=== PATIENT | female | born 1935 | race Caucasian/White ===

== ENCOUNTER 2021-08-23 08:48 | Day surgery (SDC) | payer MEDICARE, BC ==
[~2021-08-23] VITALS: Ht 160 cm; Wt 60.9 kg
[2021-08-23 09:00] VITALS: BP 124/64
[2021-08-23] MEDS ORDERED: MIDAZolam 1 MG/ML 5ML VIAL ONE (09:00)
[2021-08-23] MEDS ORDERED: fentaNYL/PF 50MCG/1 ML 2ML syringe ONE (09:00)
[2021-08-23] MEDS ORDERED: LIDOcaine Viscous 15ml cup ONE (09:01)
[2021-08-23] MEDS ORDERED: TRAZ-251 PO (09:11)
[2021-08-23] MEDS ORDERED: PANT-47 PO (09:11)
[2021-08-23] MEDS ORDERED: RAME8TAB15 PO (09:11)
[2021-08-23] MEDS ORDERED: CITA20TA27 PO (09:11)
[2021-08-23] MEDS ORDERED: BUSP5TAB3 PO (09:11)
[2021-08-23 09:59] VITALS: BP 180/75
[2021-08-23 10:09] VITALS: BP 142/65
[2021-08-23 10:19] VITALS: BP 128/60
[2021-08-23 10:29] VITALS: BP 138/60
== END 2021-08-23 10:41 | disposition home or self-care (01) ==
LOC: GI LAB 08:48
PROVIDERS: ATTEND Internal Medicine Gastroenterology
DX: R13.10 Dysphagia, unspecified (principal); K22.2 Esophageal obstruction; K44.9 Diaphragmatic hernia without obstruction or gangrene; K29.50 Unspecified chronic gastritis without bleeding; K20.80 Other esophagitis without bleeding; Z90.710 Acquired absence of both cervix and uterus
CPT/HCPCS: 43239; G0500; J2250; J3010; Z7512; 88305; 88342; 99152; A4620

== ENCOUNTER 2022-03-02 14:10 | Emergency (ER) | payer MEDICARE, BC ==
[~2022-03-02] VITALS: Ht 160 cm; Wt 61.8 kg
[~2022-03-02 14:10] MED LIST: BUSP5TAB3 PO; CITA20TA27 PO; PANT-47 PO; RAME8TAB15 PO; TRAZ-251 PO
[2022-03-02 14:48] VITALS: BP 144/47
[2022-03-02 15:28] LABS: BASOPHILS # (AUTO) 0.1 X10'3 (0-0.2); EOSINOPHILS # (AUTO) 0.1 X10'3 (0-0.9); EOSINOPHILS % (AUTO) 1.5 % (0-6); HEMATOCRIT 36.5 % (35.0-45.0); HEMOGLOBIN 12.1 g/dl (12.0-16.0); LYMPHOCYTES # (AUTO) 1.4 X10'3 (1.1-4.8); LYMPHOCYTES % (AUTO) 18.8 % (21-51); MEAN CORPUSCULAR HGB CONC 33.3 g/dL (33.0-36.5); MEAN CORPUSCULAR VOLUME 87.1 FL (78-98); MONOCYTES # (AUTO) 0.7 X10'3 (0-0.9); MONOCYTES % (AUTO) 8.7 % (2-12); NEUTROPHILS # (AUTO) 5.3 X10'3 (1.8-7.7); PLATELET COUNT 259 X10'3 (140-440); RED BLOOD COUNT 4.19 X10'6 (4.20-5.60); RED CELL DISTRIBUTION WIDTH 14.9 % (11.5-14.5); WHITE BLOOD COUNT 7.5 X10'3 (4.5-11.0)
[2022-03-02 15:42] LABS: ALANINE AMINOTRANSFERASE 17 U/L (12-78); ALBUMIN 3.6 G/DL (3.4-5.0); ALKALINE PHOSPHATASE 111 IU/L (46-116); ANION GAP 4 (8-16); ASPARTATE AMINO TRANSFERASE 18 U/L (10-37); BILIRUBIN,TOTAL 0.3 MG/DL (0.1-1.0); BLOOD UREA NITROGEN 11 MG/DL (7-18); BUN/CREATININE RATIO 13.6 (6.6-38.0); CALCIUM 8.4 MG/DL (8.5-10.1); CHLORIDE 102 MMOL/L (99-107); CREATININE 0.81 MG/DL (0.40-0.90); GLUCOSE 115 MG/DL (70-104); POTASSIUM 3.9 MMOL/L (3.5-5.1); SODIUM 132 MMOL/L (135-145); TOTAL CARBON DIOXIDE 25.9 MMOL/L (24-32); TOTAL PROTEIN 7.2 G/DL (6.4-8.2); eGFR 67 ML/MIN
== END 2022-03-03 01:41 | disposition left against medical advice (07) ==
LOC: ER 14:10
DX: R42 Dizziness and giddiness (principal); Z53.21 Procedure and treatment not carried out due to patient leaving prior to being seen by health care provider
CPT/HCPCS: 36415; 71045; 80053; 83880; 84484; 85025

== ENCOUNTER 2022-07-02 16:12 | Emergency (ER) | payer MEDICARE, BC ==
[~2022-07-02] VITALS: Ht 160 cm; Wt 61.0 kg
[2022-07-02 16:41] VITALS: BP 194/68
[2022-07-02] MEDS ORDERED: normal saline 1000ML IV soln IVB ONE (16:50)
[2022-07-02 17:41] LABS: BASOPHILS % (AUTO) 0.5 % (0-1); EOSINOPHILS # (AUTO) 0.1 X10'3 (0-0.9); EOSINOPHILS % (AUTO) 1.7 % (0-6); HEMATOCRIT 33.3 % (35.0-45.0); HEMOGLOBIN 11.1 g/dl (12.0-16.0); LYMPHOCYTES # (AUTO) 1.6 X10'3 (1.1-4.8); LYMPHOCYTES % (AUTO) 29.1 % (21-51); MEAN CORPUSCULAR HEMOGLOBIN 29.4 PG (27.0-31.0); MEAN CORPUSCULAR HGB CONC 33.4 g/dL (33.0-36.5); MEAN CORPUSCULAR VOLUME 88.1 FL (78-98); MONOCYTES # (AUTO) 0.7 X10'3 (0-0.9); MONOCYTES % (AUTO) 12.6 % (2-12); NEUTROPHILS % (AUTO) 56.1 % (42-75); PLATELET COUNT 232 X10'3 (140-440); RED BLOOD COUNT 3.78 X10'6 (4.20-5.60); RED CELL DISTRIBUTION WIDTH 14.7 % (11.5-14.5); WHITE BLOOD COUNT 5.4 X10'3 (4.5-11.0)
[2022-07-02 17:45] LABS: ALANINE AMINOTRANSFERASE 21 U/L (12-78); ALBUMIN/GLOBULIN RATIO 0.9 (1.1-1.5); ALKALINE PHOSPHATASE 100 IU/L (46-116); ANION GAP 6 (8-16); ASPARTATE AMINO TRANSFERASE 23 U/L (10-37); BILIRUBIN,TOTAL 0.2 MG/DL (0.1-1.0); BLOOD UREA NITROGEN 16 MG/DL (7-18); BUN/CREATININE RATIO 19.8 (6.6-38.0); CALCIUM 8.4 MG/DL (8.5-10.1); CHLORIDE 101 MMOL/L (99-107); CREATININE 0.81 MG/DL (0.40-0.90); GLUCOSE 100 MG/DL (70-104); POTASSIUM 4.4 MMOL/L (3.5-5.1); SODIUM 136 MMOL/L (135-145); TOTAL CARBON DIOXIDE 29.1 MMOL/L (24-32); TOTAL PROTEIN 6.5 G/DL (6.4-8.2); eGFR 67 ML/MIN
[2022-07-02] MEDS ORDERED: ERGO500054 PO (18:29)
--- NOTE | 2022-07-02 19:15 | NUR ---
Per primary nurse, pt son was here to give pt a ride home, but when PCT wheeled patient out of ER, son was not in parking lot. Number listed for son was called and message left.
== END 2022-07-02 19:42 | disposition home or self-care (01) ==
LOC: ER 16:12
DX: U07.1 COVID-19 (principal); R53.1 Weakness; R50.9 Fever, unspecified; R11.10 Vomiting, unspecified; F41.9 Anxiety disorder, unspecified; F32.A Depression, unspecified; Z79.899 Other long term (current) drug therapy
CPT/HCPCS: 36415; 71045; 80053; 84484; 85025; 87635; 93005; 99285; C9803; J7030

== ENCOUNTER 2023-01-16 11:12 | Emergency (ER) | payer MEDICARE, BC ==
[~2023-01-16] VITALS: Ht 157.5 cm; Wt 57.3 kg
[~2023-01-16 11:12] MED LIST changes: +ERGO500054 PO
[2023-01-16 12:05] LABS: BASOPHILS # (AUTO) 0.1 X10'3 (0-0.2); BASOPHILS % (AUTO) 0.7 % (0-1); EOSINOPHILS % (AUTO) 0.2 % (0-6); HEMATOCRIT 30.1 % (35.0-45.0); LYMPHOCYTES # (AUTO) 0.9 X10'3 (1.1-4.8); LYMPHOCYTES % (AUTO) 7.7 % (21-51); MEAN CORPUSCULAR HEMOGLOBIN 27.5 PG (27.0-31.0); MEAN CORPUSCULAR HGB CONC 33.3 g/dL (33.0-36.5); MEAN CORPUSCULAR VOLUME 82.6 FL (78-98); MEAN PLATELET VOLUME 7.4 FL (7.4-10.4); MONOCYTES # (AUTO) 0.5 X10'3 (0-0.9); MONOCYTES % (AUTO) 4.1 % (2-12); NEUTROPHILS # (AUTO) 10.5 X10'3 (1.8-7.7); NEUTROPHILS % (AUTO) 87.3 % (42-75); PLATELET COUNT 408 X10'3 (140-440); RED BLOOD COUNT 3.65 X10'6 (4.20-5.60); RED CELL DISTRIBUTION WIDTH 17.4 % (11.5-14.5); WHITE BLOOD COUNT 12.1 X10'3 (4.5-11.0)
[2023-01-16 12:16] LABS: ALANINE AMINOTRANSFERASE 11 U/L (12-78); ALBUMIN 3.3 G/DL (3.4-5.0); ALBUMIN/GLOBULIN RATIO 0.8 (1.1-1.5); ALKALINE PHOSPHATASE 115 IU/L (46-116); ANION GAP 8 (8-16); ASPARTATE AMINO TRANSFERASE 13 U/L (10-37); BILIRUBIN,TOTAL 0.4 MG/DL (0.1-1.0); BLOOD UREA NITROGEN 21 MG/DL (7-18); BUN/CREATININE RATIO 18.1 (10.0-20.0); CALCIUM 8.7 MG/DL (8.5-10.1); CHLORIDE 104 MMOL/L (99-107); CREATININE 1.16 MG/DL (0.40-0.90); GLUCOSE 112 MG/DL (70-104); POTASSIUM 4.4 MMOL/L (3.5-5.1); SODIUM 135 MMOL/L (135-145); TOTAL CARBON DIOXIDE 23.2 MMOL/L (24-32); TOTAL PROTEIN 7.2 G/DL (6.4-8.2); eGFR 44 ML/MIN
[2023-01-16 16:27] LABS: CLARITY,URINE SLIGHTLY CLOUDY (Clear); COLOR,URINE YELLOW (Yellow); GLUCOSE, URINE NEGATIVE (Neg); KETONES,URINE 15 mg/dl (Neg); LEUKOCYTE ESTERASE ,URINE NEGATIVE (Neg); NITRITES, URINE NEGATIVE (Neg); OCCULT BLOOD,URINE TRACE-INTACT (Neg); PROTEIN,URINE TRACE mg/dl (Neg); UROBILINOGEN,URINE 0.2 E.U/dL (0.2-1.0)
[2023-01-16 16:29] LABS: UA COLLECTION TYPE VOIDED
[2023-01-16 16:41] LABS: BACTERIA,URINE 2+ /HPF (Neg); RBC,URINE 0-2 /HPF (0-2); SQUAMOUS EPITHELIAL CELL,UR MANY /LPF (FEW)
[2023-01-16 16:42] LABS: MUCUS STRANDS FEW /LPF (Neg); TRANSITIONAL EPI CELLS,URINE FEW /HPF
--- NOTE | 2023-01-16 16:42 | NUR ---
cALL FROM LAB UA IS CONTAMINATED WILL NEED TO RECAP. RN NOTIFIED.
[2023-01-16] MEDS ORDERED: AMOX-117 PO (16:48)
[2023-01-16] MEDS: amox tr/potassium clavulanate 875/125mg TAB PO ONE (17:18)
[2023-01-16 20:20] VITALS: BP 118/42
== END 2023-01-16 17:25 | disposition home or self-care (01) ==
LOC: ER 11:12
DX: N39.0 Urinary tract infection, site not specified (principal); F31.9 Bipolar disorder, unspecified; Z79.899 Other long term (current) drug therapy; Z79.1 Long term (current) use of non-steroidal anti-inflammatories (NSAID); Z79.2 Long term (current) use of antibiotics
CPT/HCPCS: 36415; 71045; 80053; 81001; 83880; 84484; 85025; 93005; 99285

== ENCOUNTER 2023-06-02 08:27 | Inpatient (IN) | payer MEDICARE, BC ==
[~2023-06-02] VITALS: Ht 160 cm; Wt 59.1 kg
[2023-06-02 10:16] LABS: BASOPHILS # (AUTO) 0.1 X10'3 (0-0.2); EOSINOPHILS # (AUTO) 0.4 X10'3 (0-0.9); EOSINOPHILS % (AUTO) 4.3 % (0-6); HEMATOCRIT 32.7 % (35.0-45.0); HEMOGLOBIN 10.6 g/dl (12.0-16.0); LYMPHOCYTES # (AUTO) 1.3 X10'3 (1.1-4.8); LYMPHOCYTES % (AUTO) 14.3 % (21-51); MEAN CORPUSCULAR HEMOGLOBIN 27.3 PG (27.0-31.0); MEAN CORPUSCULAR HGB CONC 32.3 g/dL (33.0-36.5); MEAN CORPUSCULAR VOLUME 84.4 FL (78-98); MEAN PLATELET VOLUME 7.5 FL (7.4-10.4); MONOCYTES # (AUTO) 0.7 X10'3 (0-0.9); MONOCYTES % (AUTO) 7.8 % (2-12); NEUTROPHILS # (AUTO) 6.6 X10'3 (1.8-7.7); NEUTROPHILS % (AUTO) 72.6 % (42-75); PLATELET COUNT 399 X10'3 (140-440); RED BLOOD COUNT 3.88 X10'6 (4.20-5.60); RED CELL DISTRIBUTION WIDTH 15.9 % (11.5-14.5); WHITE BLOOD COUNT 9.1 X10'3 (4.5-11.0)
[2023-06-02 10:28] LABS: APTT 35 SECONDS (22-32); PROTHROMBIN TIME 10.7 SECONDS (9.0-12.0)
[2023-06-02 10:31] LABS: ALANINE AMINOTRANSFERASE 15 U/L (12-78); ALBUMIN/GLOBULIN RATIO 0.8 (1.1-1.5); ALKALINE PHOSPHATASE 114 IU/L (46-116); ANION GAP 9 (8-16); ASPARTATE AMINO TRANSFERASE 11 U/L (10-37); BILIRUBIN,TOTAL 0.4 MG/DL (0.1-1.0); BLOOD UREA NITROGEN 13 MG/DL (7-18); BUN/CREATININE RATIO 17.1 (10.0-20.0); CALCIUM 8.9 MG/DL (8.5-10.1); CHLORIDE 105 MMOL/L (99-107); CREATININE 0.76 MG/DL (0.40-0.90); GLUCOSE 105 MG/DL (70-104); POTASSIUM 3.8 MMOL/L (3.5-5.1); SODIUM 139 MMOL/L (135-145); TOTAL CARBON DIOXIDE 25.3 MMOL/L (24-32); TOTAL PROTEIN 6.9 G/DL (6.4-8.2); eCRCL 42 ML/MIN; eGFR 72 ML/MIN
[2023-06-02] MEDS ORDERED: acetaminophen 325mg tablet PO ONE (10:35)
[2023-06-02 11:13] LABS: BILIRUBIN,URINE NEGATIVE (Neg); CLARITY,URINE SLIGHTLY CLOUDY (Clear); COLOR,URINE YELLOW (Yellow); GLUCOSE, URINE NEGATIVE (Neg); KETONES,URINE 40 mg/dl (Neg); LEUKOCYTE ESTERASE ,URINE NEGATIVE (Neg); NITRITES, URINE NEGATIVE (Neg); OCCULT BLOOD,URINE TRACE-INTACT (Neg); PROTEIN,URINE 30 mg/dl (Neg); UROBILINOGEN,URINE 0.2 E.U/dL (0.2-1.0)
[2023-06-02 11:16] LABS: UA COLLECTION TYPE FOLEY CATH
[2023-06-02 11:18] LABS: BACTERIA,URINE FEW /HPF (Neg); MUCUS STRANDS NONE SEEN /LPF (Neg); RBC,URINE 0-2 /HPF (0-2); SQUAMOUS EPITHELIAL CELL,UR FEW /LPF (FEW); WBC,URINE 0-4 /HPF (0-4)
[2023-06-02] MEDS ORDERED: DICL50TA6 PO (13:04)
[2023-06-02] MEDS ORDERED: TOPI25TA49 PO (13:04)
[2023-06-02] MEDS ORDERED: SERT-432 PO (13:04)
[2023-06-02] MEDS ORDERED: ondansetron 4mg rapidly disintigrating tab PO PRN (13:10)
[2023-06-02] MEDS ORDERED: HYDROmorphone inj. 0.5 MG/0.5 ML DISP.SYRIN IV PRN (13:10)
[2023-06-02] MEDS ORDERED: magnesium 4gm in 100ml NS 100 ML IV PRN (13:10)
[2023-06-02] MEDS: normal saline 1000ml 1,000 ML IV SCH ×3 (13:10→23:02)
[2023-06-02] MEDS ORDERED: magnesium 2GM in 50ml NS 50 ML IV PRN (13:10)
[2023-06-02] MEDS ORDERED: bisacodyl 10mg suppository rectal RC PRN (13:10)
[2023-06-02] MEDS ORDERED: acetaminophen 650mg rectal suppository RC PRN (13:10)
[2023-06-02] MEDS ORDERED: potassium Cl 20 mEq SR tablet PO PRN ×2 (13:10)
[2023-06-02] MEDS ORDERED: HYDROmorphone/PF 0.2 MG/ML SYRINGE IV PRN (13:10)
[2023-06-02] MEDS ORDERED: magnesium Cl slow-release 64mg tablet PO PRN (13:10)
[2023-06-02] MEDS ORDERED: potassium Cl 40MEQ/1/2NS 520ml 520 ML IV PRN (13:10)
[2023-06-02] MEDS ORDERED: ondansetron/PF 4mg/2ml inj IV PRN (13:10)
[2023-06-02] MEDS ORDERED: acetaminophen 325mg tablet PO PRN ×2 (13:10)
[2023-06-02] MEDS ORDERED: LIDOcaine 2% 10ml TOPICAL JELLY (Urojet) TP ONE (13:10)
[2023-06-02] MEDS ORDERED: mag hydrox/Alum hydrox/simeth 30ml oral suspension PO PRN (13:10)
[2023-06-02] MEDS ORDERED: magnesium hydroxide 30ml (MOM) UD suspension PO PRN (13:10)
[2023-06-02 13:25] LABS: MAGNESIUM 2.2 MG/DL (1.5-2.4)
[2023-06-02] MEDS ORDERED: LidoCAINE 2% Topical Jelly 11mL syringe TOP ONE (13:30)
[2023-06-02] MEDS: HYDROcodone/acetaminophen 5mg/325mg tablet PO PRN (14:40)
--- NOTE | 2023-06-02 16:46 | NUR ---
Report given to nurse Yovana pt with room assignment 4915x
--- NOTE | 2023-06-02 16:48 | NUR ---
Received report from ALEKSANDRA Wu in the ED. Patient is stable for baseline, went over patients plan of care. To be transferred to :2540 B.
[2023-06-02 16:55] LABS: CREATINE KINASE 113 U/L (26-192)
[2023-06-02 17:53] VITALS: BP 141/57; PULSE 74; RESP 16; TEMP 97.3; O2SAT 92
--- NOTE | 2023-06-02 18:18 | NUR ---
Problems reprioritized. Patient report given, questions answered & plan of care reviewed with Oneida LAKE.
[2023-06-02 19:15] VITALS: BP 127/53; PULSE 73; RESP 16; TEMP 97.2; O2SAT 94
[2023-06-02] MEDS: K and/or MAG REPLACEMENT MC SCH (20:00)
[2023-06-02] MEDS ORDERED: heparin, porcine 5000 units/ml vial SQ SCH (20:00)
[2023-06-02] MEDS: busPIRone 5mg tablet PO SCH (20:08)
[2023-06-02] MEDS: docusate sod 100mg capsule PO SCH (20:08)
[2023-06-02] MEDS ORDERED: temazepam 15mg capsule PO PRN (21:00)
[2023-06-02 22:00] VITALS: BP 130/47; PULSE 75; RESP 16; TEMP 97.9; O2SAT 95
[2023-06-02] MEDS: traZODone 50mg tablet PO SCH (22:41)
[2023-06-03] VITALS (14 sets, daily range): BP systolic 98–158; BP diastolic 38–59; PULSE 16–85; RESP 16–18; TEMP 97.7–98.4; O2SAT 91–97
[2023-06-03] MEDS: HYDROcodone/acetaminophen 5mg/325mg tablet PO PRN ×3 (00:12→19:51)
--- NOTE | 2023-06-03 06:35 | NUR ---
Problems reprioritized. Patient report given, questions answered & plan of care reviewed with ALEKSANDRA HUMPHREY.
[2023-06-03 06:37] LABS: BASOPHILS # (AUTO) 0.1 X10'3 (0-0.2); BASOPHILS % (AUTO) 0.9 % (0-1); EOSINOPHILS # (AUTO) 0.7 X10'3 (0-0.9); EOSINOPHILS % (AUTO) 7.4 % (0-6); HEMOGLOBIN 9.4 g/dl (12.0-16.0); LYMPHOCYTES # (AUTO) 1.5 X10'3 (1.1-4.8); MEAN CORPUSCULAR HEMOGLOBIN 27.4 PG (27.0-31.0); MEAN CORPUSCULAR HGB CONC 32.5 g/dL (33.0-36.5); MEAN CORPUSCULAR VOLUME 84.3 FL (78-98); MEAN PLATELET VOLUME 7.3 FL (7.4-10.4); MONOCYTES # (AUTO) 0.9 X10'3 (0-0.9); MONOCYTES % (AUTO) 9.6 % (2-12); NEUTROPHILS # (AUTO) 6.1 X10'3 (1.8-7.7); NEUTROPHILS % (AUTO) 66.1 % (42-75); PLATELET COUNT 352 X10'3 (140-440); RED BLOOD COUNT 3.44 X10'6 (4.20-5.60); RED CELL DISTRIBUTION WIDTH 15.8 % (11.5-14.5); WHITE BLOOD COUNT 9.2 X10'3 (4.5-11.0)
[2023-06-03 06:57] LABS: ALANINE AMINOTRANSFERASE 15 U/L (12-78); ALBUMIN 2.5 G/DL (3.4-5.0); ALBUMIN/GLOBULIN RATIO 0.7 (1.1-1.5); ALKALINE PHOSPHATASE 99 IU/L (46-116); ANION GAP 6 (8-16); ASPARTATE AMINO TRANSFERASE 21 U/L (10-37); BILIRUBIN,TOTAL 0.3 MG/DL (0.1-1.0); BLOOD UREA NITROGEN 15 MG/DL (7-18); BUN/CREATININE RATIO 22.1 (10.0-20.0); CALCIUM 8.3 MG/DL (8.5-10.1); CHLORIDE 106 MMOL/L (99-107); CREATININE 0.68 MG/DL (0.40-0.90); GLUCOSE 92 MG/DL (70-104); MAGNESIUM 2.1 MG/DL (1.5-2.4); POTASSIUM 3.7 MMOL/L (3.5-5.1); SODIUM 139 MMOL/L (135-145); TOTAL CARBON DIOXIDE 26.8 MMOL/L (24-32); eCRCL 47 ML/MIN; eGFR 82 ML/MIN
[2023-06-03] MEDS ORDERED: BUPIVAcaine/PF 2.5 mg/ml (0.25%) 30ml vial ONE (07:14)
--- NOTE | 2023-06-03 07:46 | NUR ---
pt taken for surgery
[2023-06-03] MEDS ORDERED: fentaNYL/PF 50MCG/1 ML 2ML syringe ONE (07:54)
[2023-06-03] MEDS ORDERED: midazolam 1 mg/ML 2ml injection ONE (07:54)
[2023-06-03] MEDS: pantoprazole 40mg Tablet.DR PO SCH (08:00)
[2023-06-03] MEDS: K and/or MAG REPLACEMENT MC SCH ×2 (08:00→18:50)
[2023-06-03] MEDS: docusate sod 100mg capsule PO SCH ×2 (08:00→19:51)
[2023-06-03] MEDS ORDERED: ketamine 50mg/5ml syringe ONE (08:18)
[2023-06-03] MEDS ORDERED: BUPIVAcaine/PF 2.5 mg/ml (0.25%) 30ml vial IJ ONE (08:30)
[2023-06-03] MEDS ORDERED: ceFAZolin 1000mg inj ONE (08:44)
[2023-06-03] MEDS ORDERED: phenylephrine 10mg/ml inj. -priapism dosing ONE (08:44)
[2023-06-03] MEDS ORDERED: non-formulary drug (Diclofenac Potassium 1 TAB) PO PRN (08:50)
--- NOTE | 2023-06-03 08:50 | NUR ---
Received from OR via , accompanied by Anesthesiologist DR GARVIN and report given by Anesthesiolgist. PT AWAKE ALERT, SKIN WARM AND PINK, DERMATOME LEVEL L1, MOVES BILAT UE'S, PIV LEFT AC 20G, RIGHT HIP WITH DERMABOND AND SMALL ISLAND DRESSING, CALDERA TO GRAVITY, PEDAL PULSES +3, NO C/O PAIN.
--- NOTE | 2023-06-03 09:24 | NUR ---
Report called to receiving nurse. Transferred via [facility] . Special Issues communicated to receiving nurse.PT SLEEPING BUT WAKES TO VOICE, NO C/O PAIN, VSS, PIV PATENT, SCD'S ON PT, CALDERA TO GRAVITY, DERMTOME LEVEL L1. PT MEETS DISCHARGE CRITERIA.
[2023-06-03] MEDS: topiramate 25mg tablet PO SCH (10:03)
[2023-06-03] MEDS: sertraline 25mg tablet PO SCH (10:03)
[2023-06-03] MEDS: busPIRone 5mg tablet PO SCH ×2 (10:03→19:51)
[2023-06-03] MEDS: ceFAZolin/D5W- 1GM premix 50 ML IV SCH ×2 (16:44→23:48)
[2023-06-03] MEDS: normal saline 1000ml 1,000 ML IV SCH (16:44)
[2023-06-03] MEDS: traZODone 50mg tablet PO SCH (21:21)
[2023-06-03] MEDS: HYDROcodone/acetaminophen 10/325mg tab PO PRN (23:49)
[2023-06-04 02:22] VITALS: BP_SYST 100; BP_SYST 150; BP_DIAS 52; PULSE 81; RESP 14; TEMP 98.7; O2SAT 91
[2023-06-04 06:17] LABS: MEAN CORPUSCULAR VOLUME 83.6 FL (78-98)
[2023-06-04 06:20] LABS: BASOPHILS # (AUTO) 0.1 X10'3 (0-0.2); BASOPHILS % (AUTO) 0.6 % (0-1); EOSINOPHILS # (AUTO) 0.2 X10'3 (0-0.9); HEMATOCRIT 23.4 % (35.0-45.0); LYMPHOCYTES # (AUTO) 1.3 X10'3 (1.1-4.8); LYMPHOCYTES % (AUTO) 12.7 % (21-51); MEAN CORPUSCULAR HEMOGLOBIN 27.6 PG (27.0-31.0); MEAN PLATELET VOLUME 7.1 FL (7.4-10.4); MONOCYTES # (AUTO) 0.7 X10'3 (0-0.9); MONOCYTES % (AUTO) 6.8 % (2-12); NEUTROPHILS % (AUTO) 77.9 % (42-75); PLATELET COUNT 327 X10'3 (140-440); RED BLOOD COUNT 2.79 X10'6 (4.20-5.60); RED CELL DISTRIBUTION WIDTH 15.2 % (11.5-14.5); WHITE BLOOD COUNT 10.3 X10'3 (4.5-11.0)
[2023-06-04 06:28] LABS: ALANINE AMINOTRANSFERASE 11 U/L (12-78); ALBUMIN 2.3 G/DL (3.4-5.0); ALBUMIN/GLOBULIN RATIO 0.7 (1.1-1.5); ALKALINE PHOSPHATASE 83 IU/L (46-116); ANION GAP 7 (8-16); ASPARTATE AMINO TRANSFERASE 17 U/L (10-37); BILIRUBIN,TOTAL 0.3 MG/DL (0.1-1.0); BLOOD UREA NITROGEN 11 MG/DL (7-18); BUN/CREATININE RATIO 17.5 (10.0-20.0); CALCIUM 8.4 MG/DL (8.5-10.1); CHLORIDE 105 MMOL/L (99-107); CREATININE 0.63 MG/DL (0.40-0.90); GLUCOSE 115 MG/DL (70-104); MAGNESIUM 1.9 MG/DL (1.5-2.4); POTASSIUM 3.7 MMOL/L (3.5-5.1); SODIUM 136 MMOL/L (135-145); TOTAL CARBON DIOXIDE 23.7 MMOL/L (24-32); TOTAL PROTEIN 5.5 G/DL (6.4-8.2); eCRCL 51 ML/MIN; eGFR 89 ML/MIN
[2023-06-04 06:30] VITALS: BP 172/49; PULSE 66; RESP 18; TEMP 98.7; O2SAT 96
[2023-06-04 06:41] LABS: HEMOGLOBIN 7.7 g/dl (12.0-16.0)
--- NOTE | 2023-06-04 06:50 | NUR ---
Patient report given to Rain RN, patient resting comfortably at this time.
[2023-06-04] MEDS: ceFAZolin/D5W- 1GM premix 50 ML IV SCH ×2 (07:04→15:43)
[2023-06-04] MEDS: HYDROcodone/acetaminophen 10/325mg tab PO PRN ×2 (07:04→17:51)
[2023-06-04] MEDS: sertraline 25mg tablet PO SCH (07:04)
[2023-06-04] MEDS: pantoprazole 40mg Tablet.DR PO SCH (07:04)
[2023-06-04] MEDS: busPIRone 5mg tablet PO SCH ×2 (07:04→20:25)
[2023-06-04] MEDS: docusate sod 100mg capsule PO SCH ×2 (07:04→20:25)
[2023-06-04] MEDS: topiramate 25mg tablet PO SCH (07:05)
[2023-06-04] MEDS: K and/or MAG REPLACEMENT MC SCH ×2 (08:00→20:00)
[2023-06-04] MEDS: normal saline 1000ml 1,000 ML IV SCH (08:04)
[2023-06-04 10:14] VITALS: BP 104/45; PULSE 79; RESP 14; TEMP 97.5; O2SAT 92
[2023-06-04 11:06] VITALS: RESP 16
[2023-06-04 18:00] VITALS: BP 134/45; PULSE 77; RESP 18; TEMP 97.6; O2SAT 90
--- NOTE | 2023-06-04 18:16 | NUR ---
Report given to Terri LAKE
[2023-06-04] MEDS: traZODone 50mg tablet PO SCH ×2 (20:25→22:16)
[2023-06-04 22:00] VITALS: BP 119/56; PULSE 82; RESP 15; TEMP 98.1; O2SAT 92
--- NOTE | 2023-06-04 22:35 | NUR ---
BLADDER SCANNED PT AND SHE HAD 112 MLS IN BLADDER.
--- NOTE | 2023-06-05 03:30 | NUR ---
BLADDER SCANNED PT HAD 404 MLS IN BLADDER. ENCOURAGED HER TO PEE SHE WAS ABLE TO PEE ABOUT 150 MLS AFTER SCAN AND IS CONTINUING TO VOID NOW. WILL CONTINUE TO MONITOR.
[2023-06-05] MEDS: HYDROcodone/acetaminophen 10/325mg tab PO PRN (05:16)
--- NOTE | 2023-06-05 06:29 | NUR ---
Problems reprioritized. Patient report given, questions answered & plan of care reviewed with ALEKSANDRA JACKSON.
[2023-06-05 06:49] VITALS: BP 145/54; PULSE 83; RESP 16; TEMP 98.2; O2SAT 97
[2023-06-05 07:40] LABS: BASOPHILS # (AUTO) 0.1 X10'3 (0-0.2); EOSINOPHILS # (AUTO) 0.5 X10'3 (0-0.9); EOSINOPHILS % (AUTO) 5.1 % (0-6); HEMATOCRIT 22.5 % (35.0-45.0); HEMOGLOBIN 7.2 g/dl (12.0-16.0); LYMPHOCYTES # (AUTO) 1.3 X10'3 (1.1-4.8); LYMPHOCYTES % (AUTO) 14.1 % (21-51); MEAN CORPUSCULAR HEMOGLOBIN 26.9 PG (27.0-31.0); MEAN CORPUSCULAR HGB CONC 32.1 g/dL (33.0-36.5); MEAN PLATELET VOLUME 7.3 FL (7.4-10.4); MONOCYTES # (AUTO) 0.9 X10'3 (0-0.9); MONOCYTES % (AUTO) 9.4 % (2-12); NEUTROPHILS # (AUTO) 6.5 X10'3 (1.8-7.7); NEUTROPHILS % (AUTO) 70.4 % (42-75); PLATELET COUNT 342 X10'3 (140-440); RED BLOOD COUNT 2.68 X10'6 (4.20-5.60); RED CELL DISTRIBUTION WIDTH 15.4 % (11.5-14.5); WHITE BLOOD COUNT 9.3 X10'3 (4.5-11.0)
[2023-06-05] MEDS: busPIRone 5mg tablet PO SCH (07:53)
[2023-06-05] MEDS: sertraline 25mg tablet PO SCH (07:53)
[2023-06-05] MEDS: pantoprazole 40mg Tablet.DR PO SCH (07:53)
[2023-06-05] MEDS: docusate sod 100mg capsule PO SCH (07:53)
[2023-06-05] MEDS: topiramate 25mg tablet PO SCH (07:53)
[2023-06-05 07:56] LABS: ALANINE AMINOTRANSFERASE 12 U/L (12-78); ALBUMIN 2.1 G/DL (3.4-5.0); ALBUMIN/GLOBULIN RATIO 0.7 (1.1-1.5); ALKALINE PHOSPHATASE 77 IU/L (46-116); ANION GAP 4 (8-16); ASPARTATE AMINO TRANSFERASE 19 U/L (10-37); BILIRUBIN,TOTAL 0.2 MG/DL (0.1-1.0); BLOOD UREA NITROGEN 9 MG/DL (7-18); BUN/CREATININE RATIO 15.3 (10.0-20.0); CHLORIDE 103 MMOL/L (99-107); CREATININE 0.59 MG/DL (0.40-0.90); GLUCOSE 110 MG/DL (70-104); POTASSIUM 3.9 MMOL/L (3.5-5.1); SODIUM 134 MMOL/L (135-145); TOTAL CARBON DIOXIDE 26.7 MMOL/L (24-32); TOTAL PROTEIN 5.3 G/DL (6.4-8.2); eCRCL 55 ML/MIN; eGFR > 90 ML/MIN
[2023-06-05] MEDS: K and/or MAG REPLACEMENT MC SCH (08:00)
[2023-06-05 08:22] VITALS: RESP 16
[2023-06-05 10:18] VITALS: BP 116/41; PULSE 70; RESP 11; TEMP 97.9; O2SAT 96
--- NOTE | 2023-06-05 13:46 | NUR ---
Report given to Cecy LAKE at [facility]. Answered all questions, phone number given if needing more information.
--- NOTE | 2023-06-05 13:53 | NUR ---
Patient called son to notify she is being transfered.
== END 2023-06-05 14:16 | DRG 481 ==
LOC: ER 08:28 → ED HOLD 13:11 → UNDOADMIN 13:11 → ED HOLD 17:37 → ORTHO 4S 17:37 → PACU 06-03 08:05 → ORTHO 4S 06-03 08:05 → PACU 06-03 10:07
PROVIDERS: ADMIT Family Medicine; ATTEND Internal Medicine
PROC: 0QH634Z Insertion of Internal Fixation Device into Right Upper Femur, Percutaneous Approach (ICD-10-PCS; principal; 2023-06-03 07:59)
DX: S72.001A Fracture of unspecified part of neck of right femur, initial encounter for closed fracture (principal); R71.0 Precipitous drop in hematocrit; Z60.2 Problems related to living alone; K59.00 Constipation, unspecified; W18.39XA Other fall on same level, initial encounter; S09.90XA Unspecified injury of head, initial encounter; R09.89 Other specified symptoms and signs involving the circulatory and respiratory systems; R19.7 Diarrhea, unspecified; Z90.710 Acquired absence of both cervix and uterus; Y93.89 Activity, other specified; Y92.098 Other place in other non-institutional residence as the place of occurrence of the external cause; Y99.8 Other external cause status; Z79.899 Other long term (current) drug therapy
CPT/HCPCS: 36415; 70450; 71045; 72125; 73502; 73700; 76000; 80053; 81001; 82550; 82948; 83735; 85025; 85610; 85730; 86885; 86900; 86901; 87081; 93005; 93880; 97110; 97161; 97530; 99285; A4314; A4615; A5200; A6212; A7000; C1713; C1758; G0378; J0690; J2250; J2370; J3010; J3490; J7030

== ENCOUNTER 2023-08-13 13:50 | Emergency (ER) | payer MEDICARE, BC ==
[~2023-08-13] VITALS: Ht 157.5 cm; Wt 51.2 kg
[~2023-08-13 13:50] MED LIST changes: -CITA20TA27 PO; +DICL50TA6 PO; -ERGO500054 PO; -RAME8TAB15 PO; +SERT-432 PO; +TOPI25TA49 PO
[2023-08-13 14:00] VITALS: BP 238/83; PULSE 87; RESP 18; TEMP 97.8; O2SAT 98
--- NOTE | 2023-08-13 14:52 | NUR ---
PT STATES "I HAVE ALLERGIES, JUST NOT SURE WHAT THEY ARE"
[2023-08-13] MEDS ORDERED: aspirin 81mg, enteric-coated 1 TAB TABLET.DR PO ONE (15:05)
[2023-08-13] MEDS ORDERED: ALPRAZolam 0.25mg tablet PO ONE (15:05)
--- NOTE | 2023-08-13 16:24 | NUR ---
JOY LOADING MACHINE OPERATOR ASSESSMENT REVIEWED BY CARMELO SANTOYO RN; APPROVED
[2023-08-13] MEDS ORDERED: ALPR-384 PO (16:28)
--- NOTE | 2023-08-13 17:09 | NUR ---
PT'S SON GALA WILL BE HERE ROUGHLY AROUND @1725 TO PICK HER UP.
== END 2023-08-13 17:40 | disposition home or self-care (01) ==
LOC: ER 13:50
DX: R51.9 Headache, unspecified (principal); F31.9 Bipolar disorder, unspecified; Z79.899 Other long term (current) drug therapy
CPT/HCPCS: 70450; 99284

== ENCOUNTER 2024-03-15 14:45 | Emergency (ER) | payer MEDICARE, BC ==
[~2024-03-15] VITALS: Ht 160 cm; Wt 49.1 kg
[~2024-03-15 14:45] MED LIST changes: +ALPR-384 PO
[2024-03-15] MEDS: cloNIDine 0.1 mg tablet PO ONE (19:41)
[2024-03-15 20:11] VITALS: BP 155/84; PULSE 66; RESP 17; TEMP 97.9; O2SAT 98
== END 2024-03-15 20:12 | disposition home or self-care (01) ==
LOC: ER 14:45
DX: R51.9 Headache, unspecified (principal); I10 Essential (primary) hypertension; Z79.899 Other long term (current) drug therapy; Z90.710 Acquired absence of both cervix and uterus
CPT/HCPCS: 70450; 99284